=== PATIENT | male | born 1965 | race Caucasian/White ===

== ENCOUNTER 2017-05-05 22:05 | Inpatient (IN) | payer OTHER ==
[~2017-05-05] VITALS: Ht 177.8 cm; Wt 110.7 kg
[2017-05-05 22:05] VITALS: BP 115/69
[~2017-05-05 22:05] MED LIST: ANAPROX DS550 MG PO; AUGMENTIN 875 M1 TAB PO; CIPRODEX 0.3%-7.5 ML OT; CLARITIN10 MG PO; PEN-VEE K500 MG PO; PREDNICOT20 MG PO; ROBAXIN750 MG PO; TRAMADOL HCL50 MG PO
[2017-05-05 22:28] LABS: BASO # 0.1 10*3/uL (0.0-0.1); BASO % 0.6 % (0.0-1.0); EOS # 0.3 10*3/uL (0.0-0.4); EOS % 3.5 % (1.0-4.0); HEMATOCRIT 39.8 % (42.0-52.0); HEMOGLOBIN 13.6 g/dl (14.0-18.0); LYMPH # 2.7 10*3/uL (1.3-4.4); LYMPH % 27.6 % (27.0-41.0); MEAN CELL VOLUME 84.1 fl (80.0-94.0); MEAN CORPUSCULAR HGB 28.8 pg (27.0-31.0); MEAN CORPUSCULAR HGB CONC 34.2 g/dl (33.0-37.0); MEAN PLATELET VOLUME 9.8 fl (9.6-12.3); MONO # 0.9 10*3/uL (0.1-1.0); NEUT # 5.8 10*3/uL (2.3-7.9); NEUT % 58.9 % (47.0-73.0); PLATELET COUNT AUTOMATED 204 10*3/uL (130-400); RED BLOOD COUNT 4.73 10*6/uL (4.50-5.90); WHITE BLOOD COUNT 9.8 10*3/uL (4.8-10.8)
[2017-05-05] MEDS ORDERED: FUROSEMIDE20 M1 PO (22:31)
[2017-05-05] MEDS ORDERED: ASPIRIN ADULT L81 M1 PO (22:32)
[2017-05-05] MEDS ORDERED: NEURONTIN300 MG PO (22:32)
[2017-05-05] MEDS ORDERED: CLARITIN10 MG PO (22:33)
[2017-05-05] MEDS ORDERED: VITAMIN D-32000 UNI1 PO (22:33)
[2017-05-05] MEDS ORDERED: LOSARTAN POTASS50 M1 PO (22:33)
[2017-05-05] MEDS ORDERED: ALEVE220 MG PO (22:34)
[2017-05-05] MEDS ORDERED: CARVEDILOL12.5 MG PO (22:34)
[2017-05-05] MEDS ORDERED: LIPITOR80 MG PO (22:35)
[2017-05-05 22:39] LABS: ACT PARTIAL THROMBO TIME 24.6 SECONDS (20.8-31.5)
[2017-05-05 22:46] LABS: ALBUMIN 3.8 gm/dl (3.1-4.5); ALKALINE PHOSPHATASE 103 U/L (45-117); BUN 11 mg/dl (7-24); CHLORIDE 105 mmol/L (98-107); CREATININE 1.24 mg/dL (0.70-1.30); POTASSIUM 3.5 mmol/L (3.5-5.1); SGOT/AST 31 IU/L (3-35); SGPT/ALT 56 U/L (12-78); SODIUM 142 mmol/L (136-145); TOTAL PROTEIN 7.1 gm/dL (6.4-8.2)
[2017-05-05 22:48] LABS: TROPONIN I < 0.015 ng/ml (<0.045)
[2017-05-05 23:05] VITALS: BP 116/73
[2017-05-06] VITALS (7 sets, daily range): BP systolic 105–125; BP diastolic 58–79
[2017-05-06 05:14] LABS: ALBUMIN 3.5 gm/dl (3.1-4.5); ALKALINE PHOSPHATASE 99 U/L (45-117); BUN 11 mg/dl (7-24); CHLORIDE 105 mmol/L (98-107); CHOLESTEROL 122 mg/dL (<200); CREATININE 1.24 mg/dL (0.70-1.30); HDL CHOLESTEROL 30 mg/dl (40-60); LDL CHOLESTEROL 59 mg/dL (9-159); POTASSIUM 3.5 mmol/L (3.5-5.1); SGOT/AST 26 IU/L (3-35); SGPT/ALT 54 U/L (12-78); SODIUM 142 mmol/L (136-145); TOTAL PROTEIN 6.3 gm/dL (6.4-8.2); TRIGLYCERIDES 167 mg/dl (<150); VLDL CHOLESTEROL 33 mg/dL (6-40)
[2017-05-06 05:37] LABS: BASO # 0.1 10*3/uL (0.0-0.1); BASO % 0.7 % (0.0-1.0); EOS # 0.3 10*3/uL (0.0-0.4); HEMATOCRIT 38.5 % (42.0-52.0); LYMPH # 2.2 10*3/uL (1.3-4.4); MEAN CELL VOLUME 85.7 fl (80.0-94.0); MEAN CORPUSCULAR HGB CONC 33.8 g/dl (33.0-37.0); MEAN PLATELET VOLUME 10.1 fl (9.6-12.3); MONO # 0.7 10*3/uL (0.1-1.0); MONO % 10.3 % (3.0-9.0); NEUT # 3.7 10*3/uL (2.3-7.9); NEUT % 52.7 % (47.0-73.0); PLATELET COUNT AUTOMATED 173 10*3/uL (130-400); RED BLOOD COUNT 4.49 10*6/uL (4.50-5.90)
== END 2017-05-06 19:00 | disposition home or self-care (01) | DRG 313 ==
LOC: ED 22:05 → EDHOLD 05-06 00:34 → 5E 05-06 00:52
PROVIDERS: Emergency Medicine Emergency Medical Services; Family Medicine Adult Medicine
PROC: 4A02XM4 Measurement of Cardiac Total Activity, External Approach (ICD-10-PCS; principal; 2017-05-06)
PROC: 3E073KZ Introduction of Other Diagnostic Substance into Coronary Artery, Percutaneous Approach (ICD-10-PCS; 2017-05-06)
DX: R07.89 Other chest pain (principal); I25.10 Atherosclerotic heart disease of native coronary artery without angina pectoris; E66.01 Morbid (severe) obesity due to excess calories; D64.9 Anemia, unspecified; E55.9 Vitamin D deficiency, unspecified; E78.5 Hyperlipidemia, unspecified; I10 Essential (primary) hypertension; R73.9 Hyperglycemia, unspecified; I25.2 Old myocardial infarction; Z68.35 Body mass index [BMI] 35.0-35.9, adult; Z95.5 Presence of coronary angioplasty implant and graft; Z95.1 Presence of aortocoronary bypass graft; Z90.49 Acquired absence of other specified parts of digestive tract; Z79.82 Long term (current) use of aspirin; Z79.899 Other long term (current) drug therapy; Z88.8 Allergy status to other drugs, medicaments and biological substances; Z82.49 Family history of ischemic heart disease and other diseases of the circulatory system

== ENCOUNTER 2018-11-30 16:37 | Inpatient (IN) | payer OTHER ==
[2018-11-30] VITALS (7 sets, daily range): BP systolic 114–140; BP diastolic 75–86
[~2018-11-30] VITALS: Ht 177.8 cm; Wt 109.4 kg
--- NOTE | ~2018-11-30 | EKG ---
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
--- NOTE | ~2018-11-30 | ST ---
[place], [place] EXERCISE STRESS TEST REPORT [id number] UNIT #: [id number] ROOM: 408 DOCTOR: MARLYN JACKSON MD BIRTHDATE: [birth year] DOS: 12/01/2018 EXERCISE TREADMILL STRESS TEST REFERRING PHYSICIAN: Dr. Cifuentes. INDICATION: Chest pain. FINDINGS: The patient underwent standard Faizan protocol exercise treadmill stress test. Baseline EKG is normal sinus rhythm, nonspecific ST-T wave changes. Heart rate is 71, blood pressure 118/68. Peak heart rate was 145 with a peak blood pressure 142/82. The patient's peak heart rate 145 represents 86% of maximum predicted. The patient exercised for 9 minutes on the treadmill with no EKG changes, no arrhythmias, no chest pain. SUMMARY OF FINDINGS: 1. Unremarkable exercise treadmill stress test. 2. [place] Treadmill score of 9. 3. No significant symptoms. 4. Please see separate report for perfusion scan imaging results. MARLYN JACKSON MD CM:STRESS:EXERCISE STRESS TEST REPORT [id number] MARLYN JACKSON MD
--- NOTE | ~2018-11-30 | EKG ---
[place], [place] ELECTROCARDIOGRAM REPORT NAME: MARLEY AGUIRRE UNIT #: [id number] ROOM: 408 DOCTOR: NADER DRAFT REPORT BIRTHDATE: [address] 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
--- NOTE | ~2018-11-30 | EKG ---
[place], [place] ELECTROCARDIOGRAM REPORT NAME: MARLEY AGUIRRE UNIT #: [id number] ROOM: 408 DOCTOR: NADER DRAFT REPORT BIRTHDATE: [birth year] [facility] Test Date: 2018-11-30 Test Time: 19:31:05 Pat Name: MARLEY AGUIRRE Department: Room: 408 Gender: M Delivery Lead: Cathy Wilks : 1965 Requested By: AUSTYN BRYAN Order Number: [id number] Reading MD: Solis Orr MD Measurements Intervals [place] Rate: 69 P: 36 MN: 174 QRS: -17 QRSD: 124 T: -3 QT: 392 QTc: 420 Interpretive Statements Sinus rhythm Nonspecific intraventricular conduction delay Inferior infarct, old ST elevation, consider anterior injury Baseline wander in lead(s) V4,V5 Partial missing lead(s): V5 Electronically Signed On 12-03-2018 7:44:04 PDT by Solis Orr MD CM:EKGRPT:ELECTROCARDIOGRAM REPORT 30 [id number] AUSTYN DOE DRAFT REPORT AUSTYN BRYAN M.D.
[~2018-11-30 16:37] MED LIST changes: +ALEVE220 MG PO; +ASPIRIN ADULT L81 M1 PO; +CARVEDILOL12.5 MG PO; +FUROSEMIDE20 M1 PO; +LIPITOR80 MG PO; +LOSARTAN POTASS50 M1 PO; +NEURONTIN300 MG PO; +VITAMIN D-32000 UNI1 PO
[2018-11-30 16:54] LABS: BASO # 0.1 10*3/uL (0.0-0.1); BASO % 0.5 % (0.0-1.0); EOS # 0.3 10*3/uL (0.0-0.4); EOS % 2.6 % (1.0-4.0); HEMATOCRIT 41.9 % (42.0-52.0); HEMOGLOBIN 14.2 g/dl (14.0-18.0); LYMPH # 2.5 10*3/uL (1.3-4.4); LYMPH % 26.3 % (27.0-41.0); MEAN CELL VOLUME 87.7 fl (80.0-94.0); MEAN CORPUSCULAR HGB 29.7 pg (27.0-31.0); MEAN CORPUSCULAR HGB CONC 33.9 g/dl (33.0-37.0); MEAN PLATELET VOLUME 9.7 fl (9.6-12.3); MONO # 0.9 10*3/uL (0.1-1.0); MONO % 9.5 % (3.0-9.0); NEUT # 5.9 10*3/uL (2.3-7.9); NEUT % 60.7 % (47.0-73.0); PLATELET COUNT AUTOMATED 225 10*3/uL (130-400); RED BLOOD COUNT 4.78 10*6/uL (4.50-5.90); WHITE BLOOD COUNT 9.7 10*3/uL (4.8-10.8)
[2018-11-30 17:07] LABS: ACT PARTIAL THROMBO TIME 24.6 SECONDS (20.0-32.1); INTERNATIONAL NORM RATIO 0.9 (2.0-3.5)
[2018-11-30 17:10] LABS: ALBUMIN 3.9 gm/dl (3.1-4.5); ALKALINE PHOSPHATASE 103 U/L (45-117); BUN 15 mg/dl (7-24); CHLORIDE 107 mmol/L (98-107); CREATININE 1.16 mg/dL (0.70-1.30); POTASSIUM 3.7 mmol/L (3.5-5.1); SGOT/AST 19 IU/L (3-35); SGPT/ALT 38 U/L (12-78); SODIUM 142 mmol/L (136-145); TOTAL PROTEIN 7.1 gm/dL (6.4-8.2)
[2018-11-30 17:11] LABS: TROPONIN I < 0.015 ng/ml (<0.045)
--- NOTE | 2018-11-30 17:45 | NUR ---
PT REMAINS W/O ACUTE DISTRESS NOTED AWAITING ALL RESULTS FOR ADDITIONAL PLAN OF CARE,SAFETY PRECAUTIONS INTACT AND CALL LIGHT WITHIN REACH.
--- NOTE | 2018-11-30 18:50 | NUR ---
PT WITH ABRASION TO LLE D/T "I SCRATCHED IT MYSELF" PER PT, NO EXUDATE AND NO TX REQUIRED.
--- NOTE | 2018-11-30 18:53 | NUR ---
A 53, admitted to , under the services of RONALD Trotter DO with a diagnosis of CHEST PAIN. Chief complaint is CHEST PAIN. Patient arrived via bed from ER. Monitor applied. Initial assessment completed. Vital signs taken and recorded. RONALD TROTTER DO notified of admission to the unit. Orders received. See assessment for past medical history, medications and allergies. Patient and/or family oriented to unit. [facility] visitation policy reviewed. Clothing/patient valuable form completed. DIONISIO CROSS
--- NOTE | 2018-11-30 19:16 | NUR ---
DR. HOPKINS NOTIFIED OF COMPLETE MED REC.
--- NOTE | 2018-11-30 20:15 | NUR ---
DR. DANG PAGED REGARDING CONSULT ORDER. WILL AWAIT RETURN CALL.
--- NOTE | 2018-11-30 20:29 | NUR ---
DR. DANG NOTIFIED OF CONSULT. DR Krishna JACKSON WILL SEE PATIENT IN AM.
[2018-12-01] VITALS: BP 125/77
--- NOTE | 2018-12-01 03:35 | NUR ---
24 HR chart check completed.
--- NOTE | 2018-12-01 09:00 | NUR ---
Hi Teacher in to talk to patient. Patient states lives at home with family. There are few steps in the home. Physician: esha rouse [facility] Home health services: none Patient's level of ADLs: INDEPENDENT Patient has working utilities: all working DME: none Follow-up physician's appointment after d/c: will be made by hospitalist nurse director upon discharge Does patient want to access PORTAL?: no Discharge plan discussed with patient, he lives at home, he states he is independent in adls and ambualtion patient states he will be returning home when able and denies any home needs. NICK JOSEPH
--- NOTE | 2018-12-01 11:30 | NUR ---
INFORMED CONSENT OBTAINED FOR EXERCISE CARDIOLITE STRESS TEST WITH DR. JACKSON. RESTING EKG NSR WITH A SUPINE HR OF 71 WITH BP OF 118/68 AND HR OF 72 WITH BP OF 120/58 IN STANDING POSITION. HAS A Q WAVE IN LEADS II,III,AVF AND V5-V6. PT COMPLETED A 9:00 OF A YELITZA PROTOCOL WITH COMPLETION OF STAGE III AT 3.4 MPH AND 14% GRADE. REACHED A PEAK HR OF 145 WHICH IS 86% OF PMHR WITH A PEAK BP OF 142/82. TEST TERMINATED BECAUSE OF FATIGUE. HAD NO CHEST PAIN OR ANY EKG CHANGES. HAD AN OCCASIONAL PVC. HAS A GOOD EXERCISE TOLERANCE. LAST RECOVERY HR OF 99 WITH BP OF 124/68. AWAITING SCANNING IN STABLE CONDITION.
[2018-12-01 12:00] VITALS: BP 113/76
--- NOTE | 2018-12-01 14:27 | NUR ---
Discharge instructions reviewed with patient/family. Patient receptive and verbalizes understanding. Follow-up care arranged. Written instructions given to patient/family. SERGIO KIM
--- NOTE | 2018-12-01 14:27 | NUR ---
PT DISCHARGED AT THIS TIME TO MEET HIS ADRIENNE ESTRADA IN [facility].
== END 2018-12-01 14:27 | disposition home or self-care (01) | DRG 392 ==
LOC: ED 16:37 → EDHOLD 18:27 → 4E 18:27
PROVIDERS: Emergency Medicine; ADMIT Internal Medicine
PROC: 4A02XM4 Measurement of Cardiac Total Activity, External Approach (ICD-10-PCS; principal; 2018-12-01)
PROC: 3E073KZ Introduction of Other Diagnostic Substance into Coronary Artery, Percutaneous Approach (ICD-10-PCS; 2018-12-01)
DX: K21.9 Gastro-esophageal reflux disease without esophagitis (principal); M94.0 Chondrocostal junction syndrome [Tietze]; I25.10 Atherosclerotic heart disease of native coronary artery without angina pectoris; E78.5 Hyperlipidemia, unspecified; I10 Essential (primary) hypertension; H54.8 Legal blindness, as defined in USA; E66.9 Obesity, unspecified; R73.9 Hyperglycemia, unspecified; D72.810 Lymphocytopenia; E55.9 Vitamin D deficiency, unspecified; Z98.890 Other specified postprocedural states; I25.2 Old myocardial infarction; Z95.5 Presence of coronary angioplasty implant and graft; Z88.8 Allergy status to other drugs, medicaments and biological substances; Z79.82 Long term (current) use of aspirin; Z79.899 Other long term (current) drug therapy; Z90.49 Acquired absence of other specified parts of digestive tract; Z82.49 Family history of ischemic heart disease and other diseases of the circulatory system; Z80.1 Family history of malignant neoplasm of trachea, bronchus and lung; Z68.34 Body mass index [BMI] 34.0-34.9, adult

== ENCOUNTER 2019-05-20 11:32 | Emergency (ER) | payer MEDICARE, MEDICAID ==
[~2019-05-20] VITALS: Ht 177.8 cm; Wt 108.9 kg
[2019-05-20] MEDS ORDERED: POLYTRIM 1000010 M1 OPH (13:09)
== END 2019-05-20 13:22 | disposition home or self-care (01) ==
LOC: ED 11:32
DX: H57.89 Other specified disorders of eye and adnexa (principal); I25.2 Old myocardial infarction; I25.10 Atherosclerotic heart disease of native coronary artery without angina pectoris; E78.5 Hyperlipidemia, unspecified; I10 Essential (primary) hypertension; E66.01 Morbid (severe) obesity due to excess calories; Z88.8 Allergy status to other drugs, medicaments and biological substances; Z79.899 Other long term (current) drug therapy; Z79.82 Long term (current) use of aspirin; Z68.30 Body mass index [BMI] 30.0-30.9, adult; Z98.61 Coronary angioplasty status

== ENCOUNTER 2019-08-02 01:19 | Emergency (ER) | payer MEDICARE, MEDICAID ==
[~2019-08-02] VITALS: Ht 177.8 cm; Wt 109.3 kg
[~2019-08-02 01:19] MED LIST changes: +POLYTRIM 1000010 M1 OPH
[2019-08-02 01:56] LABS: BASO % 0.4 % (0.0-1.0); EOS # 0.3 10*3/uL (0.0-0.4); EOS % 4.1 % (1.0-4.0); HEMATOCRIT 39.6 % (42.0-52.0); LYMPH # 2.6 10*3/uL (1.3-4.4); LYMPH % 36.1 % (27.0-41.0); MEAN CELL VOLUME 86.8 fl (80.0-94.0); MEAN CORPUSCULAR HGB 29.6 pg (27.0-31.0); MEAN CORPUSCULAR HGB CONC 34.1 g/dl (33.0-37.0); MEAN PLATELET VOLUME 9.5 fl (9.6-12.3); MONO # 0.9 10*3/uL (0.1-1.0); MONO % 11.9 % (3.0-9.0); NEUT # 3.4 10*3/uL (2.3-7.9); NEUT % 47.2 % (47.0-73.0); PLATELET COUNT AUTOMATED 186 10*3/uL (130-400); RED BLOOD COUNT 4.56 10*6/uL (4.50-5.90); RED CELL DISTRI WIDTH 13.2 % (0-14.5); WHITE BLOOD COUNT 7.1 10*3/uL (4.8-10.8)
[2019-08-02 02:07] LABS: ACT PARTIAL THROMBO TIME 26.3 SECONDS (20.0-32.1)
[2019-08-02 02:12] LABS: ALBUMIN 3.4 gm/dl (3.1-4.5); ALKALINE PHOSPHATASE 88 U/L (45-117); BUN 15 mg/dl (7-24); CHLORIDE 108 mmol/L (98-107); CREATININE 1.09 mg/dL (0.70-1.30); POTASSIUM 3.8 mmol/L (3.5-5.1); SGOT/AST 18 IU/L (3-35); SGPT/ALT 45 U/L (12-78); SODIUM 141 mmol/L (136-145); TOTAL PROTEIN 6.2 gm/dL (6.4-8.2)
[2019-08-02 02:14] LABS: TROPONIN I < 0.015 ng/ml (<0.045)
== END 2019-08-02 02:52 | disposition home or self-care (01) ==
LOC: ED 01:19
PROVIDERS: Emergency Medicine
DX: R07.89 Other chest pain (principal); I10 Essential (primary) hypertension; I25.2 Old myocardial infarction; F17.200 Nicotine dependence, unspecified, uncomplicated; Z88.8 Allergy status to other drugs, medicaments and biological substances; Z79.899 Other long term (current) drug therapy; Z79.82 Long term (current) use of aspirin; Z90.49 Acquired absence of other specified parts of digestive tract; Z98.61 Coronary angioplasty status

== ENCOUNTER 2020-04-09 11:14 | Emergency (ER) | payer MEDICARE, MEDICAID ==
[~2020-04-09] VITALS: Wt 109.3 kg
[2020-04-09 12:01] LABS: BASO % 0.1 % (0.0-1.0); EOS # 0.3 10*3/uL (0.0-0.4); EOS % 3.6 % (1.0-4.0); HEMATOCRIT 45.3 % (42.0-52.0); LYMPH # 2.2 10*3/uL (1.3-4.4); LYMPH % 29.1 % (27.0-41.0); MEAN CELL VOLUME 83.7 fl (80.0-94.0); MEAN CORPUSCULAR HGB 27.7 pg (27.0-31.0); MEAN CORPUSCULAR HGB CONC 33.1 g/dl (33.0-37.0); MEAN PLATELET VOLUME 9.7 fl (9.6-12.3); MONO # 0.8 10*3/uL (0.1-1.0); NEUT # 4.1 10*3/uL (2.3-7.9); NEUT % 55.8 % (47.0-73.0); PLATELET COUNT AUTOMATED 233 10*3/uL (130-400); RED BLOOD COUNT 5.41 10*6/uL (4.50-5.90); RED CELL DISTRI WIDTH 12.9 % (0-14.5); WHITE BLOOD COUNT 7.4 10*3/uL (4.8-10.8)
[2020-04-09 12:17] LABS: ALBUMIN 4.2 gm/dl (3.1-4.5); ALKALINE PHOSPHATASE 84 U/L (45-117); BUN 16 mg/dl (7-24); CHLORIDE 107 mmol/L (98-107); CREATININE 1.26 mg/dL (0.70-1.30); POTASSIUM 4.6 mmol/L (3.5-5.1); SGOT/AST 21 IU/L (3-35); SGPT/ALT 39 U/L (12-78); SODIUM 140 mmol/L (136-145); TOTAL PROTEIN 7.2 gm/dL (6.4-8.2)
[2020-04-09 13:47] LABS: BILIRUBIN Negative (Negative); BLOOD Negative (Negative); CLARITY Clear (Clear); COLOR Yellow (Yellow); GLUCOSE Negative (Negative); KETONE Negative (Negative); LEUKO ESTERASE Negative (Negative); NITRITE Negative (Negative); SPECIFIC GRAVITY <= 1.005 (1.001-1.030); UROBILINOGEN 0.2 E.U./dl (0.0-1.0)
[2020-04-09 14:01] LABS: EPITHELIAL CELLS 0-2
== END 2020-04-09 15:06 | disposition home or self-care (01) ==
LOC: ED 11:14
PROVIDERS: Physician Assistant
DX: R10.9 Unspecified abdominal pain (principal)

== ENCOUNTER 2020-08-22 01:14 | Inpatient (IN) | payer MEDICARE, MEDICAID ==
[2020-08-22] VITALS (11 sets, daily range): BP systolic 95–130; BP diastolic 61–87
[~2020-08-22] VITALS: Ht 177.8 cm; Wt 107.0 kg
[2020-08-22 01:31] LABS: BASO # 0.1 10*3/uL (0.0-0.1); BASO % 0.6 % (0.0-1.0); EOS # 0.3 10*3/uL (0.0-0.4); EOS % 3.1 % (1.0-4.0); LYMPH % 32.9 % (27.0-41.0); MEAN CELL VOLUME 84.7 fl (80.0-94.0); MEAN CORPUSCULAR HGB 28.4 pg (27.0-31.0); MEAN CORPUSCULAR HGB CONC 33.5 g/dl (33.0-37.0); MEAN PLATELET VOLUME 9.5 fl (9.6-12.3); MONO % 10.6 % (3.0-9.0); NEUT # 4.7 10*3/uL (2.3-7.9); NEUT % 52.5 % (47.0-73.0); PLATELET COUNT AUTOMATED 219 10*3/uL (130-400); RED BLOOD COUNT 5.43 10*6/uL (4.50-5.90); RED CELL DISTRI WIDTH 13.2 % (0-14.5)
[2020-08-22 01:47] LABS: ACT PARTIAL THROMBO TIME 25.4 SECONDS (20.0-32.1)
[2020-08-22 01:51] LABS: ALBUMIN 3.9 gm/dl (3.1-4.5); ALKALINE PHOSPHATASE 94 U/L (45-117); BUN 18 mg/dl (7-24); CHLORIDE 104 mmol/L (98-107); CREATININE 1.13 mg/dL (0.70-1.30); POTASSIUM 3.6 mmol/L (3.5-5.1); SGOT/AST 22 IU/L (3-35); SGPT/ALT 42 U/L (12-78); SODIUM 140 mmol/L (136-145)
[2020-08-22 01:54] LABS: TROPONIN I < 0.015 ng/ml (<0.045)
[2020-08-22] MEDS ORDERED: REPATHA SU140 MG/1 M SQ (02:59)
[2020-08-22 04:55] LABS: BASO % 0.5 % (0.0-1.0); EOS # 0.3 10*3/uL (0.0-0.4); EOS % 3.5 % (1.0-4.0); HEMATOCRIT 44.4 % (42.0-52.0); LYMPH # 2.2 10*3/uL (1.3-4.4); LYMPH % 26.4 % (27.0-41.0); MEAN CELL VOLUME 84.6 fl (80.0-94.0); MEAN CORPUSCULAR HGB 28.2 pg (27.0-31.0); MEAN CORPUSCULAR HGB CONC 33.3 g/dl (33.0-37.0); MEAN PLATELET VOLUME 9.7 fl (9.6-12.3); MONO # 0.9 10*3/uL (0.1-1.0); MONO % 10.6 % (3.0-9.0); NEUT # 4.8 10*3/uL (2.3-7.9); NEUT % 58.5 % (47.0-73.0); PLATELET COUNT AUTOMATED 197 10*3/uL (130-400); RED BLOOD COUNT 5.25 10*6/uL (4.50-5.90); RED CELL DISTRI WIDTH 13.2 % (0-14.5); WHITE BLOOD COUNT 8.3 10*3/uL (4.8-10.8)
[2020-08-22 05:12] LABS: ALBUMIN 3.5 gm/dl (3.1-4.5); BUN 17 mg/dl (7-24); CHLORIDE 106 mmol/L (98-107); CHOLESTEROL 81 mg/dL (<200); CREATININE 1.09 mg/dL (0.70-1.30); POTASSIUM 3.8 mmol/L (3.5-5.1); SGOT/AST 20 IU/L (3-35); SGPT/ALT 42 U/L (12-78); SODIUM 137 mmol/L (136-145); TOTAL PROTEIN 6.8 gm/dL (6.4-8.2); TRIGLYCERIDES 101 mg/dl (<150)
[2020-08-22 05:13] LABS: ALKALINE PHOSPHATASE 87 U/L (45-117)
[2020-08-22 05:25] LABS: LDL CHOLESTEROL 26 mg/dL (9-159)
[2020-08-23 05:48] LABS: BUN 15 mg/dl (7-24); CHLORIDE 104 mmol/L (98-107); CREATININE 1.17 mg/dL (0.70-1.30); SODIUM 141 mmol/L (136-145)
[2020-08-23 06:21] LABS: BASO # 0.1 10*3/uL (0.0-0.1); BASO % 0.5 % (0.0-1.0); EOS # 0.4 10*3/uL (0.0-0.4); EOS % 3.6 % (1.0-4.0); LYMPH # 2.1 10*3/uL (1.3-4.4); LYMPH % 21.7 % (27.0-41.0); MEAN CELL VOLUME 85.1 fl (80.0-94.0); MEAN CORPUSCULAR HGB 28.1 pg (27.0-31.0); MEAN PLATELET VOLUME 10.4 fl (9.6-12.3); MONO % 9.7 % (3.0-9.0); NEUT # 6.3 10*3/uL (2.3-7.9); NEUT % 64.2 % (47.0-73.0); PLATELET COUNT AUTOMATED 204 10*3/uL (130-400); RED BLOOD COUNT 5.52 10*6/uL (4.50-5.90); WHITE BLOOD COUNT 9.8 10*3/uL (4.8-10.8)
[2020-08-23 08:00] VITALS: BP 110/58
== END 2020-08-23 13:24 | disposition home or self-care (01) | DRG 313 ==
LOC: ED 01:14 → EDHOLD 02:33 → 4E 02:33
PROVIDERS: Internal Medicine; ADMIT Internal Medicine; ATTEND Internal Medicine
PROC: 4A02XM4 Measurement of Cardiac Total Activity, External Approach (ICD-10-PCS; principal; 2020-08-22)
PROC: 3E073KZ Introduction of Other Diagnostic Substance into Coronary Artery, Percutaneous Approach (ICD-10-PCS; 2020-08-22)
DX: R07.9 Chest pain, unspecified (principal); I25.10 Atherosclerotic heart disease of native coronary artery without angina pectoris; R73.9 Hyperglycemia, unspecified; E78.5 Hyperlipidemia, unspecified; I10 Essential (primary) hypertension; I25.2 Old myocardial infarction; Z88.8 Allergy status to other drugs, medicaments and biological substances; Z88.6 Allergy status to analgesic agent; Z90.49 Acquired absence of other specified parts of digestive tract; Z82.49 Family history of ischemic heart disease and other diseases of the circulatory system; Z80.1 Family history of malignant neoplasm of trachea, bronchus and lung; Z79.899 Other long term (current) drug therapy; Z79.82 Long term (current) use of aspirin; Z95.5 Presence of coronary angioplasty implant and graft

== ENCOUNTER → 2021-06-22 | Day surgery (SDC) | payer OTHER, MEDICAID ==
[~2021-06-22] VITALS: Ht 180.3 cm; Wt 109.3 kg
[~2021-06-22] MED LIST changes: +IMDUR SA30 MG PO; +REPATHA SU140 MG/1 M SQ
[2021-06-22 08:00] VITALS: BP 136/88
[2021-06-22 08:50] VITALS: BP 131/82
[2021-06-22 08:59] VITALS: BP 118/87
[2021-06-22 09:20] VITALS: BP 126/81
== END | disposition home or self-care (01) ==
LOC: SDC 06-19 13:15
PROVIDERS: ATTEND Surgery
DX: Z12.11 Encounter for screening for malignant neoplasm of colon (principal); E78.5 Hyperlipidemia, unspecified; I25.10 Atherosclerotic heart disease of native coronary artery without angina pectoris; I25.2 Old myocardial infarction; Z20.822 Contact with and (suspected) exposure to COVID-19; Z79.899 Other long term (current) drug therapy

== ENCOUNTER 2021-12-01 16:41 | Emergency (ER) | payer MEDICARE, MEDICAID ==
[~2021-12-01] VITALS: Ht 177.8 cm; Wt 104.3 kg
[2021-12-01] MEDS ORDERED: PROVENTIL HFA6.7 GM INH (21:24)
== END 2021-12-01 21:57 | disposition home or self-care (01) ==
LOC: ED 16:41
DX: J40 Bronchitis, not specified as acute or chronic (principal); Z20.822 Contact with and (suspected) exposure to COVID-19; I10 Essential (primary) hypertension; I25.2 Old myocardial infarction; Z88.8 Allergy status to other drugs, medicaments and biological substances; Z79.899 Other long term (current) drug therapy; Z79.82 Long term (current) use of aspirin; Z90.49 Acquired absence of other specified parts of digestive tract

== ENCOUNTER 2022-06-09 19:48 | Emergency (ER) | payer MEDICARE, MEDICAID ==
[~2022-06-09 19:48] MED LIST changes: +PROVENTIL HFA6.7 GM INH
== END 2022-06-09 21:01 | disposition home or self-care (01) ==
LOC: ED 19:48
DX: S05.02XA Injury of conjunctiva and corneal abrasion without foreign body, left eye, initial encounter (principal); H10.89 Other conjunctivitis; Z88.8 Allergy status to other drugs, medicaments and biological substances; Z79.82 Long term (current) use of aspirin; Z79.899 Other long term (current) drug therapy; Z90.49 Acquired absence of other specified parts of digestive tract; Z98.890 Other specified postprocedural states; X58.XXXA Exposure to other specified factors, initial encounter; Y93.89 Activity, other specified; Y92.89 Other specified places as the place of occurrence of the external cause; Y99.8 Other external cause status

== ENCOUNTER 2022-07-01 17:33 | Emergency (ER) | payer MEDICARE, MEDICAID ==
[~2022-07-01] VITALS: Ht 177.8 cm; Wt 108.9 kg
[2022-07-01] MEDS ORDERED: AMOXICILLIN500 M2 PO (17:55)
== END 2022-07-01 18:01 | disposition home or self-care (01) ==
LOC: ED 17:33
DX: K04.7 Periapical abscess without sinus (principal); Z88.8 Allergy status to other drugs, medicaments and biological substances; Z79.899 Other long term (current) drug therapy; Z79.82 Long term (current) use of aspirin; Z90.49 Acquired absence of other specified parts of digestive tract; Z98.890 Other specified postprocedural states

== ENCOUNTER 2022-11-25 10:33 | Emergency (ER) | payer OTHER, MEDICARE, MEDICAID ==
[~2022-11-25 10:33] MED LIST changes: +AMOXICILLIN500 M2 PO
== END 2022-11-25 12:50 | disposition home or self-care (01) ==
LOC: ED 10:33
DX: S16.1XXA Strain of muscle, fascia and tendon at neck level, initial encounter (principal); I10 Essential (primary) hypertension; Z88.6 Allergy status to analgesic agent; Z88.8 Allergy status to other drugs, medicaments and biological substances; Z90.49 Acquired absence of other specified parts of digestive tract; Z95.5 Presence of coronary angioplasty implant and graft; Z98.890 Other specified postprocedural states; V43.52XA Car driver injured in collision with other type car in traffic accident, initial encounter; Y93.89 Activity, other specified; Y92.410 Unspecified street and highway as the place of occurrence of the external cause; Y99.8 Other external cause status

== ENCOUNTER 2023-03-07 12:09 | Emergency (ER) | payer MEDICARE, MEDICAID ==
[~2023-03-07] VITALS: Ht 177.8 cm; Wt 105.2 kg
[2023-03-07] MEDS ORDERED: ASPIRIN CHEWABL81 MG PO (12:23)
[2023-03-07] MEDS ORDERED: VITAMIN D350 MCG PO (12:25)
[2023-03-07] MEDS ORDERED: REPATHA SU140 MG/1 M SQ (12:26)
[2023-03-07] MEDS ORDERED: AMOX-CLAV 875-1 EACH PO (13:09)
== END 2023-03-07 13:26 | disposition home or self-care (01) ==
LOC: ED 12:09
DX: H66.91 Otitis media, unspecified, right ear (principal); I25.10 Atherosclerotic heart disease of native coronary artery without angina pectoris; E78.5 Hyperlipidemia, unspecified; I25.2 Old myocardial infarction; I10 Essential (primary) hypertension; Z88.8 Allergy status to other drugs, medicaments and biological substances; Z79.82 Long term (current) use of aspirin; Z79.899 Other long term (current) drug therapy; Z90.49 Acquired absence of other specified parts of digestive tract; Z95.5 Presence of coronary angioplasty implant and graft

== ENCOUNTER → 2023-04-04 | Outpatient (CLI) | payer MEDICARE, MEDICAID ==
[~2023-04-04] MED LIST changes: +AMOX-CLAV 875-1 EACH PO; +ASPIRIN CHEWABL81 MG PO; +VITAMIN D350 MCG PO
[2023-04-04 09:42] LABS: BASO % 0.1 % (0.0-1.0); EOS # 0.2 10*3/uL (0.0-0.4); EOS % 2.4 % (1.0-4.0); HEMATOCRIT 46.9 % (42.0-52.0); LYMPH % 26.2 % (27.0-41.0); MEAN CELL VOLUME 85.6 fl (80.0-94.0); MEAN CORPUSCULAR HGB 28.3 pg (27.0-31.0); MEAN PLATELET VOLUME 9.6 fl (9.6-12.3); MONO # 0.7 10*3/uL (0.1-1.0); MONO % 8.6 % (3.0-9.0); NEUT # 4.8 10*3/uL (2.3-7.9); NEUT % 62.4 % (47.0-73.0); PLATELET COUNT AUTOMATED 226 10*3/uL (130-400); RED BLOOD COUNT 5.48 10*6/uL (4.50-5.90); WHITE BLOOD COUNT 7.6 10*3/uL (4.8-10.8)
[2023-04-04 09:51] LABS: URINE CREATININE RANDOM 141.06 mg/dL
[2023-04-04 10:04] LABS: ALKALINE PHOSPHATASE 101 U/L (46-116); BUN 15 mg/dl (9-23); CHLORIDE 103 mmol/L (98-107); CHOLESTEROL 88 mg/dL (<200); LDL CHOLESTEROL 35 mg/dL (9-159); POTASSIUM 4.6 mmol/L (3.4-5.1); SGPT/ALT 55 U/L (5-49); TOTAL PROTEIN 7.2 gm/dL (6.0-8.0); TRIGLYCERIDES 87 mg/dl (<150)
== END ==
LOC: LAB 08:48
PROVIDERS: ATTEND Student in an Organized Health Care Education/Training Program
DX: I25.10 Atherosclerotic heart disease of native coronary artery without angina pectoris (principal); I25.2 Old myocardial infarction; E78.2 Mixed hyperlipidemia

== ENCOUNTER 2023-04-19 08:56 | Emergency (ER) | payer MEDICARE, MEDICAID ==
[~2023-04-19] VITALS: Ht 177.8 cm; Wt 104.3 kg
[2023-04-19] MEDS ORDERED: TOBRADEX ST EYE5 ML OP (10:11)
== END 2023-04-19 10:20 | disposition home or self-care (01) ==
LOC: ED 08:56
DX: S05.01XA Injury of conjunctiva and corneal abrasion without foreign body, right eye, initial encounter (principal); I10 Essential (primary) hypertension; Z88.6 Allergy status to analgesic agent; Z88.8 Allergy status to other drugs, medicaments and biological substances; Z90.49 Acquired absence of other specified parts of digestive tract; Z95.5 Presence of coronary angioplasty implant and graft; Z98.890 Other specified postprocedural states; X58.XXXA Exposure to other specified factors, initial encounter; Y93.89 Activity, other specified; Y92.89 Other specified places as the place of occurrence of the external cause; Y99.8 Other external cause status